=== PATIENT | female | born 1990 | race Caucasian/White ===

== ENCOUNTER 2018-08-21 12:11 | Emergency (ER) | payer BC, MEDICAID ==
[2018-08-21 12:35] VITALS: BP 126/72
--- NOTE | 2018-08-21 12:46 | UC ---
Throat Pain/Nasal Ciro HPI - HPI Summary HPI Summary: 28-year-old woman here in clinic today with a chief complaint of sore throat and runny nose. Been going on 1-2 days. She feels somewhat ill and fatigued. Rhinorrhea is yellow. No fevers. No chest congestion. She took an over-the- counter sinus preparation which did help with the symptoms. - History of Current Complaint Chief Complaint: UCRespiratory Stated Complaint: CONGESTION,COUGH,SORE THROAT,EARS Time Seen by Provider: 08/21/18 12:29 Hx Last Menstrual Period: unknown Pain Intensity: 0 - Allergies/Home Medications Allergies/Adverse Reactions: Allergies Allergy/AdvReac Type Severity Reaction Status Date / Time No Known Allergies Allergy Verified 08/21/18 12:30 Home Medications: Home Medications Escitalopram (NF) [Lexapro 20 mg (NF)] 20 mg PO DAILY 08/21/18 [History Confirmed 08/21/18] PMH/Surg Hx/FS Hx/Imm Hx Psychological History: Depression Other History Of: Negative For: HIV, Hepatitis B, Hepatitis C, Anticoagulant Therapy - Surgical History Surgical History: Yes Surgery Procedure, Year, and Place: tonsillectomy - Family History Known Family History: Positive: Hypertension, Diabetes - Social History Alcohol Use: Occasionally Substance Use Type: None Smoking Status (MU): Never Smoked Tobacco - Immunization History Most Recent Influenza Vaccination: has not had Review of Systems All Other Systems Reviewed And Are Negative: Yes Constitutional: Positive: Negative Skin: Positive: Negative Eyes: Positive: Negative ENT: Positive: Sore Throat, Nasal Discharge, Sinus Congestion Respiratory: Positive: Negative Cardiovascular: Positive: Negative Gastrointestinal: Positive: Negative Motor: Positive: Negative Neurovascular: Positive: Negative Musculoskeletal: Positive: Negative Neurological: Positive: Negative Psychological: Positive: Negative Is Patient Immunocompromised?: No Physical Exam Triage Information Reviewed: Yes Appearance: Well-Appearing, No Pain Distress, Well-Nourished Vital Signs: Initial Vital Signs Temp 97.9 F 08/21/18 12:31 Pulse 90 08/21/18 12:31 Resp 15 08/21/18 12:31 BP 126/72 08/21/18 12:31 Pulse Ox 97 08/21/18 12:31 Vital Signs Reviewed: Yes Eye Exam: Normal Eyes: Positive: Conjunctiva Clear ENT: Positive: Pharyngeal erythema, Nasal congestion, Nasal drainage, TMs normal Neck exam: Normal Neck: Positive: Supple Respiratory Exam: Normal Respiratory: Positive: Lungs clear, Normal breath sounds, No respiratory distress Cardiovascular Exam: Normal Cardiovascular: Positive: RRR Musculoskeletal Exam: Normal Musculoskeletal: Positive: Strength Intact, ROM Intact Neurological Exam: Normal Neurological: Positive: Alert, Muscle Tone Normal Psychological Exam: Normal Psychological: Positive: Age Appropriate Behavior Skin Exam: Normal Throat Pain/Nasal Course/Dx - Course Course Of Treatment: DISCUSSED VIRAL VERSES BACTERIAL INFECTIONS AND THE ROLE OF ANTIBIOTICS. THE PATIENT PREFERS TO BE ON ANTIBIOTICS AT THIS TIME. - Differential Dx/Diagnosis Provider Diagnoses: UPPER RESPIRATORY TRACT INFECTION Discharge - Sign-Out/Discharge Documenting (check all that apply): Patient Departure All imaging exams completed and their final reports reviewed: No Studies - Discharge Plan Condition: Stable Disposition: HOME Prescriptions: Amoxicillin PO (*) [Amoxicillin 875 MG (*)] 875 mg PO BID #20 tab Patient Education Materials: Upper Respiratory Infection (ED) Referrals: [facility] [Outside] Additional Instructions: FOLLOW UP WITH YOUR DOCTOR IF NOT COMPLETELY IMPROVED. GET RECHECKED FOR ANY WORSENING OF YOUR CONDITION OR QUESTIONS OR CONCERNS. - Billing Disposition and Condition Condition: STABLE Disposition: Home
== END 2018-08-21 12:50 | disposition home or self-care (01) ==
LOC: UCCORT 12:11
DX: J06.9 Acute upper respiratory infection, unspecified (principal); F32.9 Major depressive disorder, single episode, unspecified; Z79.899 Other long term (current) drug therapy
CPT/HCPCS: 99212; G0463

== ENCOUNTER 2019-01-12 13:52 | Emergency (ER) | payer MEDICAID, OTHER ==
[2019-01-12 15:50] VITALS: BP 112/79
--- NOTE | 2019-01-12 16:08 | UC ---
Throat Pain/Nasal Ciro HPI - HPI Summary HPI Summary: C/O bilateral maxillary sinus pain with worsening allergic sinus congestion in the past week. - History of Current Complaint Chief Complaint: UCRespiratory Stated Complaint: SINUSES/ST Hx Obtained From: Patient Hx Last Menstrual Period: 12/28/18 ?: No Onset/Duration: Gradual Onset, Lasting Weeks - 1, Worse Since - the last 3 days. Severity: Mild Pain Intensity: 1 Cough: None Associated Signs & Symptoms: Positive: Sinus Discomfort, Nasal Discharge. Negative: Wheezing Related History: Seasonal Allergies - Allergies/Home Medications Allergies/Adverse Reactions: Allergies Allergy/AdvReac Type Severity Reaction Status Date / Time No Known Allergies Allergy Verified 01/12/19 15:46 Home Medications: Home Medications Cetirizine* [ZyrTEC 10 MG TAB*] 10 mg PO DAILY 01/12/19 [History Confirmed 01/12] Fluticasone NASAL SPRAY 50MCG* [Flonase NASAL SPRAY 50MCG*] 1 spray BID [History Confirmed 01/12/19] PMH/Surg Hx/FS Hx/Imm Hx Previously Healthy: Yes Other History Of: Negative For: HIV, Hepatitis B, Hepatitis C, Anticoagulant Therapy - Surgical History Surgical History: Yes Surgery Procedure, Year, and Place: tonsillectomy - Family History Known Family History: Positive: Hypertension, Diabetes Negative: Cardiac Disease - Social History Occupation: Employed Full-time Lives: With Family Alcohol Use: Occasionally Substance Use Type: None Smoking Status (MU): Never Smoked Tobacco - Immunization History Most Recent Influenza Vaccination: has not had Review of Systems All Other Systems Reviewed And Are Negative: Yes ENT: Positive: Nasal Discharge, Sinus Congestion, Sinus Pain/Tenderness Is Patient Immunocompromised?: No Physical Exam Triage Information Reviewed: Yes Appearance: No Pain Distress, Well-Nourished, Ill-Appearing - mild Vital Signs: Initial Vital Signs Temp 97 F 01/12/19 15:48 Pulse 82 01/12/19 15:48 Resp 16 01/12/19 15:48 BP 112/79 01/12/19 15:48 Pulse Ox 98 01/12/19 15:48 Vital Signs Reviewed: Yes Eyes: Positive: Conjunctiva Clear ENT: Positive: Pharynx normal, Nasal congestion - with allergic changes, TMs normal Neck exam: Normal Respiratory Exam: Normal Cardiovascular Exam: Normal Musculoskeletal Exam: Normal Neurological Exam: Normal Psychological Exam: Normal Skin Exam: Normal Throat Pain/Nasal Course/Dx - Differential Dx/Diagnosis Differential Diagnosis/HQI/PQRI: Pharyngitis, Sinusitis, URI Provider Diagnosis: Allergic rhinitis, Acute sinusitis Discharge - Sign-Out/Discharge Documenting (check all that apply): Patient Departure All imaging exams completed and their final reports reviewed: No Studies - Discharge Plan Condition: Stable Disposition: HOME Prescriptions: Amoxicillin 875 mg PO BID #20 tablet Fluconazole 150 MG TAB* [Diflucan 150 MG TAB*] 150 mg PO ONCE #1 tablet Patient Education Materials: Allergic Rhinitis (ED), Sinusitis (ED), Amoxicillin (By mouth) Referrals: Augie Patton MD [Primary Care Provider] - Additional Instructions: NEILMED SINUS RINSE: CHECK OUT AT [facility] Saline nasal wash helps with mucous, allergies and congestion. It can be used up to twice a day or only as needed. Use lukewarm tap water. It does not have to be sterilized or distilled water. Do 1/3 on each side and snort out of both nostrils. Repeat the process with 1/6 of the bottle on each side with snorting in between to finish the solution in the bottle - Billing Disposition and Condition Condition: STABLE Disposition: Home
== END 2019-01-12 16:18 | disposition home or self-care (01) ==
LOC: UCCORT 13:52
DX: J30.9 Allergic rhinitis, unspecified (principal); J01.90 Acute sinusitis, unspecified
CPT/HCPCS: 99212; G0463

== ENCOUNTER 2019-03-10 16:56 | Emergency (ER) | payer OTHER ==
[2019-03-10 17:49] VITALS: BP 112/79
--- NOTE | 2019-03-10 18:13 | UC ---
Throat Pain/Nasal Ciro HPI - HPI Summary HPI Summary: 28-year-old woman comes in with a chief complaint of runny nose and sinus pressure for 4 days. She reports some green rhinorrhea. No cough or chest congestion. She does have some postnasal drip. Also has ear pressure. - History of Current Complaint Chief Complaint: UCRespiratory Stated Complaint: SINUS COMPLAINT Time Seen by Provider: 03/10/19 17:36 Hx Last Menstrual Period: 02/17 Pain Intensity: 7 - Allergies/Home Medications Allergies/Adverse Reactions: Allergies Allergy/AdvReac Type Severity Reaction Status Date / Time No Known Allergies Allergy Verified 03/10/19 17:40 Home Medications: Home Medications Cholecalciferol TAB* [Vitamin D TAB*] 1,000 unit PO DAILY 03/10/19 [History Confirmed 03/10/19] Ibuprofen TAB* [Advil TAB*] 200 mg PO DAILY PRN 03/10/19 [History Confirmed 07/19] Multivitamin [Multivitamins] 1 each PO QAM 03/10/19 [History Confirmed 03/10/19] PMH/Surg Hx/FS Hx/Imm Hx Previously Healthy: Yes Other History Of: Negative For: HIV, Hepatitis B, Hepatitis C, Anticoagulant Therapy - Surgical History Surgical History: Yes Surgery Procedure, Year, and Place: tonsillectomy - Family History Known Family History: Positive: Hypertension, Diabetes Negative: Cardiac Disease - Social History Alcohol Use: Occasionally Substance Use Type: Marijuana Substance Use Comment - Amount & Last Used: 03/08 Smoking Status (MU): Never Smoked Tobacco - Immunization History Most Recent Influenza Vaccination: has not had Review of Systems All Other Systems Reviewed And Are Negative: Yes Constitutional: Positive: Negative Skin: Positive: Negative Eyes: Positive: Negative ENT: Positive: Ear Ache, Nasal Discharge, Sinus Congestion, Sinus Pain/ Tenderness Respiratory: Positive: Negative Cardiovascular: Positive: Negative Gastrointestinal: Positive: Negative Motor: Positive: Negative Neurovascular: Positive: Negative Musculoskeletal: Positive: Negative Neurological: Positive: Negative Psychological: Positive: Negative Is Patient Immunocompromised?: No Physical Exam Triage Information Reviewed: Yes Appearance: Well-Appearing, No Pain Distress, Well-Nourished Vital Signs: Initial Vital Signs Temp 97.5 F 03/10/19 17:44 Pulse 88 03/10/19 17:44 Resp 20 03/10/19 17:44 BP 112/79 03/10/19 17:44 Pulse Ox 100 03/10/19 17:44 Vital Signs Reviewed: Yes Eye Exam: Normal Eyes: Positive: Conjunctiva Clear ENT: Positive: Pharyngeal erythema, Nasal congestion, Nasal drainage, TM dull - RT, Uvula midline Neck: Positive: Supple Respiratory: Positive: Lungs clear, Normal breath sounds, No respiratory distress Cardiovascular: Positive: RRR Musculoskeletal Exam: Normal Musculoskeletal: Positive: Strength Intact, ROM Intact Neurological: Positive: Alert, Muscle Tone Normal Psychological Exam: Normal Psychological: Positive: Age Appropriate Behavior Skin Exam: Normal Throat Pain/Nasal Course/Dx - Course Course Of Treatment: DISCUSSED VIRAL VERSES BACTERIAL INFECTION AND THE ROLE OF ANTIBIOTICS. THE PATIENT PREFERS TO BE ON ANTIBIOTICS AT THIS TIME. - Differential Dx/Diagnosis Provider Diagnosis: Sinusitis Discharge - Sign-Out/Discharge Documenting (check all that apply): Patient Departure All imaging exams completed and their final reports reviewed: No Studies - Discharge Plan Condition: Stable Disposition: HOME Prescriptions: Amoxicillin PO (*) [Amoxicillin 875 MG (*)] 875 mg PO BID #20 tab Fluconazole 150 MG TAB* [Diflucan 150 MG TAB*] 150 mg PO ONCE #2 tablet Patient Education Materials: Sinusitis (ED) Referrals: Augie Patton MD [Primary Care Provider] - Additional Instructions: FOLLOW UP WITH YOUR DOCTOR IF NOT COMPLETELY IMPROVED. GET RECHECKED SOONER IF YOUR CONDITION WORSENS OR ANY QUESTIONS OR CONCERNS. - Billing Disposition and Condition Condition: STABLE Disposition: Home
== END 2019-03-10 18:20 | disposition home or self-care (01) ==
LOC: UCCORT 16:56
DX: J32.9 Chronic sinusitis, unspecified (principal)
CPT/HCPCS: 99212; G0463

== ENCOUNTER 2019-05-15 20:20 | Emergency (ER) | payer OTHER ==
--- NOTE | 2019-05-15 20:31 | UC ---
UC General HPI - HPI Summary HPI Summary: 28-year-old female who ate dinner which consisted of chicken at the [employer] at 5 PM. Within about an hour and a half she started having diarrhea and has had 3 bouts of diarrhea since 6:30 PM. No nausea or vomiting. No fever or chills. She states this morning she did wake up and had a mild headache and felt that she may be coming down with something. No other people that ate the dinner are sick although one-person has had some mild nausea. - History of Current Complaint Stated Complaint: NAUSEA,DIARRHEA,WEAKNESS,CHILLS Time Seen by Provider: 05/15/19 20:27 Hx Obtained From: Patient Hx Last Menstrual Period: 02/17 Onset/Duration: Sudden Onset Timing: Intermittent Episodes Lasting: Onset Severity: Mild Current Severity: Mild Associated Signs & Symptoms: Positive: Diarrhea - 3 bouts of diarrhea since 6: 30 PM., Nausea - Allergy/Home Medications Allergies/Adverse Reactions: Allergies Allergy/AdvReac Type Severity Reaction Status Date / Time No Known Allergies Allergy Verified 05/15/19 20:34 PMH/Surg Hx/FS Hx/Imm Hx Previously Healthy: Yes Other History Of: Negative For: HIV, Hepatitis B, Hepatitis C, Anticoagulant Therapy - Surgical History Surgical History: Yes Surgery Procedure, Year, and Place: tonsillectomy - Family History Known Family History: Positive: Hypertension, Diabetes Negative: Cardiac Disease - Social History Alcohol Use: Occasionally Substance Use Type: Marijuana Substance Use Comment - Amount & Last Used: 03/08 Smoking Status (MU): Never Smoked Tobacco - Immunization History Most Recent Influenza Vaccination: has not had Review of Systems All Other Systems Reviewed And Are Negative: Yes Gastrointestinal: Positive: Diarrhea, Nausea Neurological: Positive: Headache - Patient does not have a headache now however she states this morning she awakened with a mild headache and felt she was coming down with something. Is Patient Immunocompromised?: No Physical Exam Triage Information Reviewed: Yes Appearance: Well-Appearing, No Pain Distress, Well-Nourished Vital Signs Reviewed: Yes Eyes: Positive: Conjunctiva Clear ENT: Positive: Hearing grossly normal, Pharynx normal, TMs normal, Uvula midline Neck: Positive: Supple, Nontender, No Lymphadenopathy Respiratory: Positive: Lungs clear, Normal breath sounds, No respiratory distress, No accessory muscle use Cardiovascular: Positive: RRR, No Murmur, Pulses Normal, Brisk Capillary Refill Abdomen Description: Positive: Nontender, No Organomegaly, Soft. Negative: CVA Tenderness (R), CVA Tenderness (L), Distended, Guarding Bowel Sounds: Positive: Present Musculoskeletal: Positive: Strength Intact, ROM Intact Neurological: Positive: Alert, Muscle Tone Normal Psychological Exam: Normal Skin Exam: Normal Course/Dx - Course Course Of Treatment: Patient is comfortable here and does not appear ill. I gave her no work until Sunday. She can go home and increase fluids. She is to go to the emergency room if she develops vomiting or diarrhea or feeling like she is going to pass out. Patient is agreeable with this plan of action. - Diagnoses Provider Diagnosis: Diarrhea Discharge - Sign-Out/Discharge Documenting (check all that apply): Patient Departure All imaging exams completed and their final reports reviewed: No Studies - Discharge Plan Condition: Good Disposition: HOME Patient Education Materials: Acute Diarrhea (ED) Forms: *Work Release Referrals: Augie Patton MD [Primary Care Provider] - Additional Instructions: Increase fluids, rest, follow-up with your primary care provider if no improvement in 3 or 4 days. If you develop fever, chills, vomiting and diarrhea and feeling you're going to pass out and go to the emergency room. - Billing Disposition and Condition Condition: GOOD Disposition: Home
[2019-05-15 20:33] VITALS: BP 107/82
--- OUTSIDE RECORDS SUMMARY | 2019-05-16 01:08 | XMS REPORT | Continuity of Care Document ---
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 [place] [id number] Family History Date Family Member(s) Observation Comments Mother Hypertension Mother Mental Illness First Brother Allergies First Brother Asthma Grandfather Diabetes Grandmother Stroke Aunt Alcoholism Aunt Cancer Social History Type Date Description Comments Sex Unknown ETOH Use Occasionally consumes alcohol Tobacco Use Start: Unknown Patient has never smoked Recreational Drug Use Never Used Drugs Smoking Status Reviewed: 01/30/18 Patient has never smoked Seat Belt/Car Seat Always uses seat belt Allergies, Adverse Reactions, Alerts Active Allergies Reaction Severity Comments Date Wellbutrin Urticaria 02/27/2018 Inactive Allergies NKDA 11/28/2016 Medications Active Medications SIG Qnty Indications Ordering Provider Date Vistaril 1-2 pills three 30caps Monroe Rucker MD 02/22/2018 25mg Capsules times a day as needed for itching Lexapro 1 by mouth every 90tabs Augie 01/02/2018 20mg Tablets day MD Abdi History Medications Wellbutrin XL 1 tab by mouth 30tabs Augie 01/30/2018 - 150mg every morning MD Abdi 02/27/2018 Tablets ER 24HR Fluticasone 1-2 sprays in 16gm J30.9 Sukhdeep Roya DO 07/25/2017 - Propionate each nostril 10/10/2017 50mcg/Act once daily Suspension Lexapro 1 by mouth every 30tabs Augie 05/08/2017 - 10mg Tablets massimo Patton MD 01/02/2018 Nexplanon Unknown - 68mg 10/31/2018 Implant Immunizations CPT Code Status Date Vaccine Lot # [id number] Given 08/27/2017 Adacel (TdaP) [id number] 97858 Given 01/11/2009 Gardasil/HPV (Records Only) 52359 Given 07/13/2008 Gardasil/HPV (Records Only) 91639 Given 10/29/2007 DTP Or Tripedia 03086 Given 10/29/2007 Gardasil/HPV (Records Only) 82286 Given 05/21/2006 Meningococcal Conjugate Vaccine 25503 Given 05/08/2003 DTP Or Tripedia 40930 Given 08/10/1995 Opv 09442 Given 08/10/1995 DTP Or Tripedia 88127 Given 08/11/1994 MMR 56225 Given 01/12/1994 Hep B Vac, (0-19) (3 Dose) 78350 Given 08/26/1993 Hep B Vac, (0-19) (3 Dose) 76041 Given 07/14/1993 Hep B Vac, (0-19) (3 Dose) 05136 Given 01/17/1992 DTP Or Tripedia 74779 Given 01/07/1992 Opv 50224 Given 10/02/1991 MMR 35775 Given 01/25/1991 DTP Or Tripedia 42291 Given 1990 Opv 69601 Given 1990 DTP Or Tripedia 62571 Given 1990 Opv 77195 Given 1990 DTP Or Tripedia 97371 Refused 01/16/2018 Flu/Fluzone Iiv4 3Yrs And Older Vital Signs Date Vital Result Comment 04/16/2019 3:56pm Weight 172.00 lb Height 62.5 inches 5'2.50" BP Systolic 110 mmHg BP Diastolic 78 mmHg Heart Rate 76 /min BMI (Body Mass Index) 31.0 kg/m2 10/31/2018 4:14pm Weight 174.12 lb Height 62.5 inches 5'2.50" BP Systolic 118 mmHg BP Diastolic 70 mmHg Heart Rate 90 /min BMI (Body Mass Index) 31.3 kg/m2 10/09/2018 10:20am Weight 176.00 lb Height 62.5 inches 5'2.50" BP Systolic 122 mmHg BP Diastolic 72 mmHg Heart Rate 84 /min BMI (Body Mass Index) 31.7 kg/m2 Z68.31 A, 31.0-31.9 02/27/2018 7:03pm Weight 175.00 lb Height 62.5 inches 5'2.50" BP Systolic 94 mmHg BP Diastolic 64 mmHg Heart Rate 88 /min BMI (Body Mass Index) 31.5 kg/m2 02/22/2018 2:34pm Weight 174.00 lb Height 62.5 inches 5'2.50" BP Systolic 116 mmHg BP Diastolic 64 mmHg Body Temperature 98.1 F Heart Rate 68 /min BMI (Body Mass Index) 31.3 kg/m2 01/30/2018 7:43pm Weight 176.25 lb Height 62.5 inches 5'2.50" BP Systolic 122 mmHg BP Diastolic 80 mmHg Heart Rate 76 /min BMI (Body Mass Index) 31.7 kg/m2 01/16/2018 5:15pm Weight 171.00 lb Height 62.5 inches 5'2.50" BP Systolic 112 mmHg BP Diastolic 74 mmHg Heart Rate 72 /min BMI (Body Mass Index) 30.8 kg/m2 Z68.30 A, 30.0-30.9 01/02/2018 8:20pm Weight 175.00 lb Height 62.5 inches 5'2.50" BP Systolic 116 mmHg BP Diastolic 80 mmHg Heart Rate 76 /min BMI (Body Mass Index) 31.5 kg/m2 11/12/2017 4:28pm Weight 175.00 lb Height 62.5 inches 5'2.50" BP Systolic 110 mmHg BP Diastolic 72 mmHg Body Temperature 98.0 F Heart Rate 72 /min BMI (Body Mass Index) 31.5 kg/m2 10/29/2017 4:25pm Weight 173.00 lb Height 62.5 inches 5'2.50" BP Systolic 112 mmHg BP Diastolic 70 mmHg Heart Rate 60 /min BMI (Body Mass Index) 31.1 kg/m2 Z68.31 A, 31.0-31.9 10/10/2017 4:12pm Weight 175.00 lb Height 62.50 inches 5'2.50" BP Systolic 126 mmHg BP Diastolic 80 mmHg Heart Rate 72 /min BMI (Body Mass Index) 31.5 kg/m2 10/10/2017 4:09pm Weight 170.00 lb Height 62.5 inches 5'2.50" BMI (Body Mass Index) 30.6 kg/m2 08/27/2017 4:03pm Weight 170.00 lb Height 62.5 inches 5'2.50" BP Systolic 122 mmHg BP Diastolic 72 mmHg Heart Rate 72 /min BMI (Body Mass Index) 30.6 kg/m2 Z68.30 A, 30.0-30.9 07/25/2017 3:58pm Weight 168.00 lb Height 62.5 inches 5'2.50" BP Systolic 120 mmHg BP Diastolic 76 mmHg Body Temperature 98.9 F Heart Rate 72 /min BMI (Body Mass Index) 30.2 kg/m2 Z68.30 A, 30.0-30.9 05/29/2017 10:24am Weight 159.00 lb Height 62.5 inches 5'2.50" BP Systolic 112 mmHg BP Diastolic 62 mmHg Heart Rate 88 /min BMI (Body Mass Index) 28.6 kg/m2 Z68.28 A, 28.0-28.9 05/08/2017 12:20pm Weight 157.00 lb Height 62.5 inches 5'2.50" BP Systolic 118 mmHg BP Diastolic 70 mmHg Heart Rate 82 /min BMI (Body Mass Index) 28.3 kg/m2 Z68.28 A, 28.0-28.9 11/28/2016 10:58am Weight 151.00 lb Height 62.5 inches 5'2.50" BP Systolic 106 mmHg BP Diastolic 64 mmHg Heart Rate 72 /min BMI (Body Mass Index) 27.2 kg/m2 Z68.27 A, 27.0-27.9 Results Test Date Facility Test Result H/L Range Note Lipid Profile 12/01/2016 [facility] Cholesterol 166 mg/dL <=200 [address] [place] [address] [phone] Triglycerides 46 mg/dL 0-150 HDL Cholesterol 69 mg/dL High 40-60 LDL (Calculated) 88 CALC 0-129 VLDL Cholesterol 9 CALC HDL Risk Factor 2.4 CALC 1 Urinalysis 12/01/2016 [facility] Color YELLOW Yellow [address] [place] [address] [phone] Appearance CLEAR Clear Specific [place] 1.005 PH 7.0 Glucose, Urine NORMAL Normal Bilirubin NEGATIVE Negative Ketone NEGATIVE Negative Blood TRACE Abnormal Negative Protein NEGATIVE Negative Nitrite NEGATIVE Negative Leukocytes NEGATIVE Negative Urinalysis Comment 1 Microscopic no <SEE NOTE> 2 Urobilinogen NORMAL Normal CBC W/Auto Diff 12/01/2016 [facility] WBC 7.8 K/uL 4.5- 11.0 [address] [place] [address] [phone] RBC 4.85 m/uL 4.20-5.40 HGB 14.4 g/dL 12.0-16.0 HCT 43.2 % 38.0-47.0 MCV 89.1 fL 82.0-98.0 MCH 29.7 pg 27.0-31.0 MCHC 33.3 g/dL 32.0-36.0 RDW 13.4 % 11.5-14.5 PLT 323 K/uL 130-400 MPV 7.5 fL 7.4-10.4 Gran # 5.2 K/uL 1.3-7.4 Lymph # 2.1 K/uL 1.2-3.4 Mid # 0.5 K/uL 0.1-2.0 Gran % 66.1 % 30.0-70.0 Mid % 6.6 % 1.0-11.0 Lymph % 27.3 % 20.0-40.0 Comprehensive 12/01/2016 [facility] Sodium 142 mmol/L 136 -145 Metabolic Panel [address] [place] [address] [phone] Potassium 4.0 mmol/L 3.5-5.1 Chloride 110 mmol/L High 98-107 Carbon Dioxide 24 mmol/L 23-32 Anion Gap 12.0 10.0-20.0 Glucose 92 mg/dL 70-105 BUN 11 mg/dL 7-19 Creatinine 0.8 mg/dL 0.6-1.1 BUN/Creat Ratio 13.8 CALC 7.0-25.0 Calcium 9.3 mg/dL 8.4-10.2 Total Protein 6.7 g/dL 6.4-8.3 Albumin 4.3 g/dL 3.5-5.0 Globulin 2.4 g/dL A/G Ratio 1.8 CALC Alk. Phosphatase 62 U/L 40-150 Alt (SGPT) 19 U/L 0-55 Ast (Sgot) 16 U/L 5-34 Total Bilirubin 0.50 mg/dL 0.20-1.20 GFR Non- >60 ml/min/1.73m^ >=60 3 GFR >60 ml/min/1.73m^ >=60 4 TSH 12/01/2016 [facility] TSH 2.80 uIU/mL 0.44-4.71 [address] [place] [address] [phone] 1 - CHD RISK FACTOR VS CHOLESTEROL/HDL RATIO RELATIVE TOTAL CHOL/HDL RATIO RISK FOR CHD MALE FEMALE 0.[address] CHD 3.4 3.3 AVERAGE 4.9 4.4 2 X AVERAGE 9.6 7.0 3 X AVERAGE 24.0 11.0 2 Microscopic not indicated. 3 - The above GFR is for a Non- patient 4 - The above GFR is for an patient Procedures Date Code Description Status 10/09/2018 01818 Removal, Non-Biodegradable Drug Delivery Implant Completed Encounters Type Date Location Provider Dx Diagnosis Office Visit 04/16/2019 [facility] Augie F32.9 Major depressive 4:00p [facility] Trever Patton MD disorder, single episode, unspecified M79.672 Pain in left foot Z68.31 Body mass index (BMI) 31.0-31.9, adult Office Visit 10/31/2018 4:00p [facility] Augie F32.9 Major depressive Physicians Trever Patton MD disorder, single episode, unspecified R10.9 Unspecified abdominal pain Z68.31 Body mass index (BMI) 31.0-31.9, adult Office Visit 10/09/2018 [facility] Sarah Z30.46 Enctr srvlnc 10:15a [facility]icians Danilo Ortega. implantable Trever subdermal contraceptive Z68.31 Body mass index (BMI) 31.0-31.9, adult Office [facility]2018 [facility] Trever Patton MD urticaria Z68.31 Body mass index (BMI) 31.0-31.9, adult Office Visit 02/22/2018 2:00p [facility] Monroe Camacho, L50.0 Allergic urticaria RPA-C F32.9 Major depressive disorder, single episode, unspecified Z68.31 Body mass index (BMI) 31.0-31.9, adult Office [facility] Trever Patton MD general adult medical exam w abnormal findings F32.9 Major depressive disorder, single episode, unspecified Z68.31 Body mass index (BMI) 31.0-31.9, adult Office Visit 01/16/2018 5:15p [facility] Augie F43.23 Adjustment [facility]icians Trever Patton MD disorder with mixed anxiety and depressed mood Z68.30 Body mass index (BMI) 30.0-30.9, adult Office Visit 01/02/2018 8:15p [facility] Augie F43.23 Adjustment [facility] Trever Patton MD disorder with mixed anxiety and depressed mood Z68.31 Body mass index (BMI) 31.0-31.9, adult Office Visit 11/12/2017 3:40p [facility] Ellen Shearer J02.9 Acute pharyngitis, INK GRINDER unspecified Z68.31 Body mass index (BMI) 31.0-31.9, adult Office Visit 10/29[facility]2017 [facility] H[facility].01 Otalgia, right 4:15p Physicians MD Abdi ear L.L.P. Office Visit 10/10/2017 [facility] Ruth Ann royal H68.003 Unspecified 4:00p Ingen, INK GRINDER-C Eustachian salpingitis, bilateral Z68.31 Body mass index (BMI) 31.0-31.9, adult Office Visit 08/27/2017 4:00p [facility] Augie F43.21 Adjustment [facility] Trever Patton MD disorder with depressed mood Z68.30 Body mass index (BMI) 30.0-30.9, adult Z23 Encounter for immunization Office Visit 07/25/2017 3:10p [facility] ANITA Conn J06.9 Acute upper respiratory infection, unspecified J30.9 Allergic rhinitis, unspecified Z68.30 Body mass index (BMI) 30.0-30.9, adult Office Visit 05/29/2017 10:45a [facility] Augie F43.21 Adjustment [facility] Trever Patton MD disorder with depressed mood Z68.28 Body mass index (BMI) 28.0-28.9, adult Office Visit 05/08/2017 12:30p [facility] Augie F43.21 Adjustment [facility] Trever Patton MD disorder with depressed mood Z68.28 Body mass index (BMI) 28.0-28.9, adult Office Visit 11/28/2016 10:30a [facility] Z00.00 Encntr for Physicians Trever Patton MD general adult medical exam w/o abnormal findings Z68.27 Body mass index (BMI) 27.0-27.9, adult M65.4 Radial styloid tenosynovitis [de Quervain] Plan of Treatment Future Appointment(s):05/21/2019 3:30 pm - Augie Patton MD at [facility]04/16/2019 - Augie Patton MDF32.9 Major depressive disorder, single episode, unspecifiedFollow up:as juazkwU43.672 Pain in left footComments:heal lift. better shoes. limit walking barefoot on hard surfacesFollow up:.Z68.31 Body mass index (BMI) 31.0-31.9, adult
--- OUTSIDE RECORDS SUMMARY | 2019-05-16 01:08 | XMS REPORT | Continuity of Care Document ---
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 Tobacco Use Start: Unknown Patient is a former one time smoker of End: Unknown smoker hooka Recreational Drug Use Sporadically uses Marijuana Recreational Drug Use Teaching provided regarding Naloxone/Narcan Training Available At [facility] Tattoo/Piercing Tattoo all ok Tattoo/Piercing Tattoos professionally done Sun Exposure Uses sunscreen Allergies, Adverse Reactions, Alerts Active Allergies Reaction Severity Comments Date NKDA 08/12/2015 Bee Sting 08/09/2015 Seasonal 08/09/2015 Medications Active Medications SIG Qnty Indications Ordering Provider Date Fluconazole one tab orally x 1tabs Z20.2 Maye Moy NP 05/13/2019 150mg Tablets one dose Lisinopril Unknown Medications Administered in Office Medication SIG Qnty Indications Ordering Provider Date Zithromax two tabs by 2tabs Z20.2 Maye Moy NP 05/13/2019 500mg Tablets mouth x 1 J-Azithromycin, 500MG, Maye Moy NP 05/13/2019 Qnty 2 Injection Nexplanon Device Maye Moy NP 03/31/2016 Injection Contraceptive Pills Maye Moy NP 12/23/2015 Control Injection Contraceptive Pills [facility] 02/11/2015 Control Injection Contraceptive Pills [facility] 11/20/2014 Control Injection Immunizations Description No Information Available Vital Signs Date Vital Result Comment 05/13/2019 12:30pm BP Systolic 112 mmHg BP Diastolic 70 mmHg Height 64 inches 5'4" Weight 174.00 lb BMI (Body Mass Index) 29.9 kg/m2 10/30/2016 10:24am BP Systolic 110 mmHg BP Diastolic 72 mmHg Height 64 inches 5'4" Results Test Date Facility Test Result H/L Range Note Laboratory test finding 05/13/2019 [facility] HIV Rapid... non reactive Hep C Rapid Test non reactive Test Urine..... negative Procedures Description No Information Available Medical Devices Description No Information Available Encounters Type Date Location Provider Dx Diagnosis Office Visit 05/13/2019 12:00p MAURA Moy NP Z20.2 Contact w and exposure to infect w a sexl mode of transmiss Z30.09 Encounter for oth general coun and advice on contraception Z11.4 Encounter for screening for human immunodeficiency virus Z11.59 Encounter for screening for other viral diseases Z32.02 Encounter for test, result negative Assessments Date Code Description Provider 05/13/2019 Z20.2 Contact with and (suspected) exposure to Maye Moy NP infections with a predominantly sexual mode of transmission 05/13/2019 Z30.09 Encounter for other general counseling and Maye Moy NP advice on contraception 05/13/2019 Z11.4 Encounter for screening for human Maye Moy NP immunodeficiency virus [HIV] 05/13/2019 Z11.59 Encounter for screening for other viral diseases Maye Moy NP 05/13/2019 Z32.02 Encounter for test, result negative Maye Moy NP Plan of Treatment 05/13/2019 - Maye Moy NPZ20.2 Contact with and (suspected) exposure to infections with a predominantly sexual mode of transmissionNew Medication: Zithromax 500 mg - two tabs by mouth x 1Fluconazole 150 mg - one tab orally x one doseNew Labs:Chlamydia/N Gonorroeae Rna Tma Urogenit, Ordered: Comments:Patient is contact to Chlamydia. Urine GCCT obtained today. Patient declines other testing. Treated today with Zmax 1 gm po. Reviewed use of, side effects and precautions of medication with patient whostates understanding. Instructed patient to abstain from ic x 1 week. Encouraged patient on consistent condom use. Rx fluconazole for prn use as patient reports that she always gets a yeast infection after taking abx.Follow up:prnZ30.09 Encounter for other general counseling and advice on contraceptionComments:Discussion regarding contraception choices. Patient is not interested in starting any bc today. She plans abstinence or consistent condom use. Patient is aware of Plan B. Patient was advised that her last PAP was 2014 and she is overdue. She states that she plans to have PAP done at her annual which is scheduled with her CREDIT DIRECTOR in [place].Z11.4 Encounter for screening for human immunodeficiency virus [HIV]Z11.59 Encounter for screening for other viral mtavicykL03.02 Encounter for test, result negativeComments:Advised patient that she could still have an early that is not detectable yet. Advised herto repeat a UPT in 2 weeks. Patient states understanding. Functional Status Description No Information Available Mental Status Description No Information Available Referrals Description No Information Available
== END 2019-05-15 20:48 | disposition home or self-care (01) ==
LOC: UCCORT 20:20
DX: R19.7 Diarrhea, unspecified (principal)
CPT/HCPCS: 99211; G0463

== ENCOUNTER 2019-06-22 18:54 | Emergency (ER) | payer OTHER ==
--- OUTSIDE RECORDS SUMMARY | 2019-06-22 19:32 | XMS REPORT | Continuity of Care Document ---
:1990 External Reference #:[id number] Author Name Augie Patton MD Address [address] [place] [address] Problems Active Problems Provider Date Major depressive disorder, single episode, Augie Patton MD Onset: unspecified Social History Type Date Description Comments Sex [...] Medications SIG Qnty Indications Ordering Provider Date Wellbutrin XL 1 tab by mouth 30tabs Augie 05/21/2019 150mg every morning MD Adbi Tablets ER 24HR Vistaril 1-2 pills three 30caps Augie 02/22/2018 25mg Capsules times a day as MD Abdi needed for itching Lexapro 1 by mouth every 90tabs Augie 01/02/2018 20mg Tablets day MD Abdi Immunizations CPT Code Status Date Vaccine Lot # [id number] Given 08/27/2017 Adacel (TdaP) [id number] 31009 Given 01/11/2009 Gardasil/HPV (Records Only) 43314 Given 07/13/2008 Gardasil/HPV (Records Only) 63538 Given 10/29/2007 DTP Or Tripedia 43754 Given 10/29/2007 Gardasil/HPV (Records Only) 59907 Given 05/21/2006 Meningococcal Conjugate Vaccine 48466 Given 05/08/2003 DTP Or Tripedia 08863 Given 08/10/1995 Opv 12313 Given 08/10/1995 DTP Or Tripedia 66790 Given 08/11/1994 MMR 68670 Given 01/12/1994 Hep B Vac, (0-19) (3 Dose) 20054 Given 08/26/1993 Hep B Vac, (0-19) (3 Dose) 07014 Given 07/14/1993 Hep B Vac, (0-19) (3 Dose) 66735 Given 01/17/1992 DTP Or Tripedia 20471 Given 01/07/1992 Opv 75521 Given 10/02/1991 MMR 98897 Given 01/25/1991 DTP Or Tripedia 78107 Given 1990 Opv 37093 Given 1990 DTP Or Tripedia 93263 Given 1990 Opv 57313 Given 1990 DTP Or Tripedia 12399 Refused 01/16/2018 Flu/Fluzone Iiv4 3Yrs And Older Vital Signs Date Vital Result Comment 05/21/2019 3:42pm Weight 173.50 lb Height 62.5 inches 5'2.50" BP Systolic 112 mmHg BP Diastolic 68 mmHg Heart Rate 72 /min BMI (Body Mass Index) 31.2 kg/m2 04/16/2019 3:56pm Weight 172.00 lb Height 62.5 inches 5'2.50" BP Systolic 110 mmHg BP Diastolic 78 mmHg Heart Rate 76 /min BMI (Body Mass Index) 31.0 kg/m2 Results Description No Information Available Procedures Description No Information Available Medical Devices Description No Information Available Encounters Type Date Location Provider Dx Diagnosis Office Visit 04/16/2019 [facility] Augie F32.9 Major depressive 4:00p Physicians Trever Patton MD disorder, single episode, unspecified M79.672 Pain in left foot Z68.31 Body mass index (BMI) 31.0-31.9, adult Assessments Date Code Description Provider 05/21/2019 Z00.01 Encounter for general adult medical Augie Patton MD examination with abnormal findings 05/21/2019 F32.9 Major depressive disorder, single episode, Augie Patton MD unspecified 05/21/2019 Z68.31 Body mass index (BMI) 31.0-31.9, adult Augie Gasparis , MD 04/16/2019 F32.9 Major depressive disorder, single episode, Augie Patton MD unspecified 04/16/2019 M79.672 Pain in left foot Augie Patton MD 04/16/2019 Z68.31 Body mass index (BMI) 31.0-31.9, adult Augie Patton MD Plan of Treatment No Information Available Functional Status Description No Information Available Mental Status Description No Information Available Referrals Description No Information Available
--- OUTSIDE RECORDS SUMMARY | 2019-06-22 19:32 | XMS REPORT | Continuity of Care Document ---
:1990 External Reference #:[id number] Author Name Augie Patton MD Address [address] [place] [address] Problems Active Problems Provider Date Major depressive disorder, single episode, Augie Patton MD Onset: unspecified Social History Type Date Description Comments Sex Unknown ETOH Use Occasionally consumes alcohol Tobacco Use Start: Unknown Patient has never smoked Recreational Drug Use Never Used Drugs Smoking Status Reviewed: 05/21/19 Patient has never smoked Seat Belt/Car Seat Always uses seat belt Allergies, Adverse Reactions, Alerts Active Allergies Reaction Severity Comments Date NKDA 06/18/2019 Inactive Allergies NKDA 11/28/2016 Wellbutrin Urticaria 02/27/2018 Medications Active Medications SIG Qnty Indications Ordering Provider Date Wellbutrin XL 1 tab by mouth 30tabs Augie 05/21/2019 150mg every morning MD Abdi Tablets ER 24HR Vistaril 1-2 pills three 30caps Augie 02/22/2018 25mg Capsules times a day as MD Abdi needed for itching Lexapro 1 by mouth every 90tabs Augie 01/02/2018 20mg Tablets day MD Abdi Immunizations CPT Code Status Date Vaccine Lot # [id number] Given 08/27/2017 Adacel (TdaP) [id number] 62962 Given 01/11/2009 Gardasil/HPV (Records Only) 86875 Given 07/13/2008 Gardasil/HPV (Records Only) 85634 Given 10/29/2007 DTP Or Tripedia 55479 Given 10/29/2007 Gardasil/HPV (Records Only) 21916 Given 05/21/2006 Meningococcal Conjugate Vaccine 36977 Given 05/08/2003 DTP Or Tripedia 60950 Given 08/10/1995 DTP Or Tripedia 05278 Given 08/10/1995 Opv 15034 Given 08/11/1994 MMR 05864 Given 01/12/1994 Hep B Vac, (0-19) (3 Dose) 99897 Given 08/26/1993 Hep B Vac, (0-19) (3 Dose) 69672 Given 07/14/1993 Hep B Vac, (0-19) (3 Dose) 72791 Given 01/17/1992 DTP Or Tripedia 18011 Given 01/07/1992 Opv 28765 Given 10/02/1991 MMR 96572 Given 01/25/1991 DTP Or Tripedia 16160 Given 1990 Opv 88501 Given 1990 DTP Or Tripedia 66155 Given 1990 Opv 29863 Given 1990 DTP Or Tripedia 22462 Refused 06/18/2019 Flu/Sanofi/Fluzone Iiv4 3Yrs And Older 32789 Refused 01/16/2018 Flu/Sanofi/Fluzone Iiv4 3Yrs And Older Vital Signs Date Vital Result Comment 06/18/2019 4:14pm Weight 175.25 lb Height 62.5 inches 5'2.50" BP Systolic 122 mmHg BP Diastolic 78 mmHg Heart Rate 80 /min BMI (Body Mass Index) 31.5 kg/m2 06/10/2019 4:22pm Weight 175.00 lb Height 62.5 inches 5'2.50" BP Systolic 92 mmHg BP Diastolic 72 mmHg Heart Rate 80 /min BMI (Body Mass Index) 31.5 kg/m2 Results Description No Information Available Procedures Date Code Description Status 06/10/2019 90277 Exc. Benign Lesions < 1/2 CM Completed Medical Devices Description No Information Available Encounters Type Date Location Provider Dx Diagnosis Office Visit 06/18/2019 [facility] Z48.02 Encounter for 4:00p Physicians Trever Patton MD removal of sutures Z68.31 Body mass index (BMI) 31.0-31.9, adult Office Visit 06/10/2019 4:30p [facility] D48.5 Neoplasm of Physicians Trever Patton MD uncertain behavior of skin Z68.31 Body mass index (BMI) 31.0-31.9, adult Office Visit 05/21/2019 3:30p [facility] Augie Z00.01 Encounter for Physicians Trever Patton MD general adult medical exam w abnormal findings F32.9 Major depressive disorder, single episode, unspecified Z68.31 Body mass index (BMI) 31.0-31.9, adult Office Visit 04/16/2019 4:00p [facility] Augie F32.9 Major depressive Physicians Trever Patton MD disorder, single episode, unspecified M79.672 Pain in left foot Z68.31 Body mass index (BMI) 31.0-31.9, adult Assessments Date Code Description Provider 06/18/2019 Z48.02 Encounter for removal of sutures Augie Patton MD 06/18/2019 Z68.31 Body mass index (BMI) 31.0-31.9, adult Augie Patton MD 06/10/2019 D48.5 Neoplasm of uncertain behavior of skin Augie Patton MD 06/10/2019 Z68.31 Body mass index (BMI) 31.0-31.9, adult Augie Patton MD 05/21/2019 Z00.01 Encounter for general adult medical Augie Patton MD examination with abnormal findings 05/21/2019 F32.9 Major depressive disorder, single episode, Augie Patton MD unspecified 05/21/2019 Z68.31 Body mass index (BMI) 31.0-31.9, adult Augie Patton MD 04/16/2019 F32.9 Major depressive disorder, single episode, Augie Patton MD unspecified 04/16/2019 M79.672 Pain in left foot Augie Patton MD 04/16/2019 Z68.31 Body mass index (BMI) 31.0-31.9, adult Augie Patton MD Plan of Treatment 06/18/2019 - Augie Patton MDZ48.02 Encounter for removal of suturesComments:path shows mod dysplastic melanotic nevus. completely excisedFollow up:as plgjcpP70.31 Body mass index (BMI) 31.0-31.9, adult Functional Status Description No Information Available Mental Status Description No Information Available Referrals Description No Information Available
--- OUTSIDE RECORDS SUMMARY | 2019-06-22 19:32 | XMS REPORT | Continuity of Care Document ---
:1990 External Reference #:[id number] Author Name Augie Patton MD Address [address] [place] [address] Problems Active Problems Provider Date Major depressive [...] CPT Code Status Date Vaccine Lot # [id number] Given 08/27/2017 Adacel (TdaP) [id number] 85909 Given 01/11/2009 Gardasil/HPV (Records Only) 07292 Given 07/13/2008 Gardasil/HPV (Records Only) 69507 Given 10/29/2007 DTP Or Tripedia 27362 Given 10/29/2007 Gardasil/HPV (Records Only) 41317 Given 05/21/2006 Meningococcal Conjugate Vaccine 68851 Given 05/08/2003 DTP Or Tripedia 42047 Given 08/10/1995 Opv 53955 Given 08/10/1995 DTP Or Tripedia 63018 Given 08/11/1994 MMR 26369 Given 01/12/1994 Hep B Vac, (0-19) (3 Dose) 11001 Given 08/26/1993 Hep B Vac, (0-19) (3 Dose) 31328 Given 07/14/1993 Hep B Vac, (0-19) (3 Dose) 70787 Given 01/17/1992 DTP Or Tripedia 25527 Given 01/07/1992 Opv 88942 Given 10/02/1991 MMR 31978 Given 01/25/1991 DTP Or Tripedia 57806 Given 1990 Opv 78690 Given 1990 DTP Or Tripedia 62882 Given 1990 Opv 22861 Given 1990 DTP Or Tripedia 17980 Refused 01/16/2018 Flu/Sanofi/Fluzone Iiv4 3Yrs And Older Vital Signs Date Vital Result Comment 06/10/2019 4:22pm Weight 175.00 lb Height 62.5 inches 5'2.50" BP Systolic 92 mmHg BP Diastolic 72 mmHg Heart Rate 80 /min BMI (Body Mass Index) 31.5 kg/m2 05/21/2019 3:42pm Weight 173.50 lb Height 62.5 inches 5'2.50" BP Systolic 112 mmHg BP Diastolic 68 mmHg Heart Rate 72 /min BMI (Body Mass Index) 31.2 kg/m2 Results Description No Information Available Procedures Date Code Description Status 06/10/2019 93966 Exc. Benign Lesions < 1/2 CM Completed Medical Devices Description No Information Available Encounters Type Date Location Provider Dx Diagnosis Office Visit 06/10/2019 [facility] D48.5 Neoplasm of 4:30p Physicians Trever Patton MD uncertain behavior of skin Z68.31 Body mass index (BMI) 31.0-31.9, adult Office Visit 05/21/2019 3:30p [facility] Z00.01 Encounter for Physicians Trever Patton MD general adult medical exam w abnormal findings F32.9 Major depressive disorder, single episode, unspecified Z68.31 Body mass index (BMI) 31.0-31.9, adult Office Visit 04/16/2019 4:00p [facility] Augie F32.9 Major depressive Physicians Trever Patton MD disorder, single episode, unspecified M79.672 Pain in left foot Z68.31 Body mass index (BMI) 31.0-31.9, adult Assessments Date Code Description Provider 06/10/2019 D48.5 Neoplasm of uncertain behavior of [...] adult Augie Patton MD Plan of Treatment Future Appointment(s):06/18/2019 4:00 pm - Augie Patton MD at [facility] Physicians Trever Functional Status Description No Information Available Mental Status Description No Information Available Referrals Description No Information Available
--- OUTSIDE RECORDS SUMMARY | 2019-06-22 19:32 | XMS REPORT | Continuity of Care Document ---
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 Recreational Drug Use Denies Drug Use Allergies, Adverse Reactions, Alerts Active Allergies Reaction Severity Comments Date Wellbutrin hives 04/22/2019 Ciprodex 06/05/2019 Inactive Allergies NKDA 12/18/2018 Medications Active Medications SIG Qnty Indications Ordering Provider Date Fluticasone 2 sprays each 29.7ml Reggie Su, 06/03/2019 Propionate nostril every day M.D. 50mcg/Act Suspension Wellbutrin SR 1 by mouth twice Unknown 150mg a day Tablets ER 12HR History Medications Prednisone 1 by mouth every 3tabs Reggie Su, 06/05/2019 - 10mg morning M.D. 06/17/2019 Tablets Nasonex 2 squirts each 51gm Reggie Su, 06/03/2019 - 50mcg/Act nostril every day M.D. 06/03/2019 Suspension Ciprodex 3-4 gtts bid in 15ml H69.93 Reggie Su, 06/03/2019 - 0.3-0.1% affected ear x 1 M.D. 06/05/2019 Suspension wk rebate: rxbin: [id number], rxpcn: loyalty, rxgrp: [id number], grips: ([id number]), id# [id number] Cetirizine HCL 1 by mouth every 30tabs Reggie Su, 12/18/2018 - 10mg day . take at M.D. 04/15/2019 Tablets night if makes you drowsy. Fluticasone 2 sprays each 29.7ml Reggie Su, 12/18/2018 - Propionate nostril every day M.D. 04/15/2019 50mcg/Act Suspension Immunizations Description No Information Available Vital Signs Date Vital Result Comment 06/17/2019 2:30pm Weight 173.00 lb Height 65 inches 5'5" BMI (Body Mass Index) 28.8 kg/m2 BP Systolic 114 mmHg BP Diastolic 78 mmHg Heart Rate 95 /min O2 % BldC Oximetry 99 % Body Temperature 98.2 F Pain Level 0 06/03/2019 9:59am Weight 174.00 lb Height 65 inches 5'5" BMI (Body Mass Index) 29.0 kg/m2 BP Systolic 114 mmHg BP Diastolic 75 mmHg Heart Rate 94 /min O2 % BldC Oximetry 98 % Body Temperature 97.4 F Pain Level 0 Results Description No Information Available Procedures Date Code Description Status 06/03/2019 09339 Tympanometry Completed 06/03/2019 70156 Audiometry, Comprehensive Completed 04/22/2019 52753 Tympanostomy, Gen. Anesth. Completed 04/22/2019 94212 Anesthesia, Tympanotomy Completed 02/17/2019 98473 Cat Scan Maxillofacial W/O Contrast,computed tomography Completed 02/17/2019 13545 Cat Scan Maxillofacial W/O Contrast,computed tomography Completed 02/17/2019 20817 Cat Scan Maxillofacial W/O Contrast,computed tomography Completed 02/11/2019 82236 Tympanometry Completed 02/11/2019 56972 Audiometry, Comprehensive Completed 02/11/2019 46183 Nasal Endoscopy, Diag. Completed Medical Devices Description No Information Available Encounters Type Date Location Provider Dx Diagnosis Office Visit 06/03/2019 Main Office Tiffani Green, H69.93 Unspecified 10:00a CHIEF DRAFTER Eustachian tube disorder, bilateral H91.92 Unspecified hearing loss, left ear Office Visit 03/04/2019 4:45p Main Office Reggie Su, H69.93 Unspecified M.D. Eustachian tube disorder, bilateral Office Visit 02/11/2019 1:30p Main Office Reggie Su J32.9 Chronic sinusitis, M.D. unspecified J31.0 Chronic rhinitis H69.83 Other specified disorders of Eustachian tube, bilateral Office Visit 12/18/2018 2:15p Main Office Tiffani Goodman J34.3 Hypertrophy of nasal TERRY Green turbinates J34.2 Deviated nasal septum H69.93 Unspecified Eustachian tube disorder, bilateral Assessments Date Code Description Provider 06/03/2019 H69.93 Unspecified Eustachian tube disorder, Tiffani Green NP bilateral 06/03/2019 H91.92 Unspecified hearing loss, left ear Tiffani Green NP 04/22/2019 H66.93 Otitis media, unspecified, bilateral Jeffery Lopez MD 04/22/2019 H66.93 Otitis media, unspecified, bilateral Reggie Su M.D. 03/04/2019 H69.93 Unspecified Eustachian tube disorder, Reggie Su M.D. bilateral 02/17/2019 J32.9 Chronic sinusitis, unspecified Anthony Butler MD 02/17/2019 J32.9 Chronic sinusitis, unspecified Reggie Su M.D. 02/11/2019 J32.9 Chronic sinusitis, unspecified Reggie Su M.D. 02/11/2019 J31.0 Chronic rhinitis Reggie Su M.D. 02/11/2019 H69.83 Other specified disorders of Eustachian tube, Reggie Su M.D. bilateral 12/18/2018 J34.3 Hypertrophy of nasal turbinates Tiffani Green NP 12/18/2018 J34.2 Deviated nasal septum Tiffani Green NP 12/18/2018 H69.93 Unspecified Eustachian tube disorder, Tiffani Green NP bilateral Plan of Treatment No Information Available Functional Status Description No Information Available Mental Status Description No Information Available Referrals Refer to Reason for Referral Status Appt Date Tiffani Green NP AUTH FOR CT TB Created [address] [place] [id number] [phone] Reggie Su M.D. NO AUTH REQ FOR SURGERY Created [address] [place] [phone] [phone] Reggie Su M.D. AUTH FOR CT SINUS Created [address] [place] [address] [phone]
--- OUTSIDE RECORDS SUMMARY | 2019-06-22 19:32 | XMS REPORT | Continuity of Care Document ---
:1990 External Reference #:[id number] Author Name Tiffani Green NP (transmitted by agent of provider Greta Campa) Address [address] [place] [address] Care Team Providers Name Role Phone Augie Patton MD Care Team Information Parole Agent [phone] Problems Description No Information Available Social History Type Date Description Comments Sex Unknown Tobacco Use Start: Unknown Never Smoked Cigarettes ETOH Use Current Alcohol Use - 1-3 Days A Week. Recreational Drug Use Denies Drug Use Allergies, Adverse Reactions, Alerts Active Allergies Reaction Severity Comments Date Wellbutrin hives 04/22/2019 Inactive Allergies NKDA 12/18/2018 Medications Active Medications SIG Qnty Indications Ordering Provider Date Wellbutrin SR 1 by mouth twice Unknown 150mg Tablets a day ER 12HR History Medications Cetirizine HCL 1 by mouth every 30tabs Reggie Su, 12/18/2018 - 10mg day . take at M.D. 04/15/2019 Tablets night if makes you drowsy. Fluticasone Propionate 2 sprays each 29.7ml Reggie Su, 12/18/2018 - nostril every day M.D. 04/15/2019 50mcg/Act Suspension Immunizations Description No Information Available Vital Signs Date Vital Result Comment 06/03/2019 9:59am Weight 174.00 lb Height 65 inches 5'5" BMI (Body Mass Index) 29.0 kg/m2 BP Systolic 114 mmHg BP Diastolic 75 mmHg Heart Rate 94 /min O2 % BldC Oximetry 98 % Body Temperature 97.4 F Pain Level 0 03/04/2019 5:48pm Weight 173.00 lb Height 65 inches 5'5" BMI (Body Mass Index) 28.8 kg/m2 BP Systolic 123 mmHg BP Diastolic 84 mmHg Heart Rate 82 /min O2 % BldC Oximetry 98 % Body Temperature 97.0 F Pain Level 0 Results Description No Information Available Procedures Date Code Description Status 04/22/2019 81505 Tympanostomy, Gen. Anesth. Completed 04/22/2019 06334 Anesthesia, Tympanotomy Completed 02/17/2019 07374 Cat Scan Maxillofacial W/O Contrast,computed tomography Completed 02/17/2019 88459 Cat Scan Maxillofacial W/O Contrast,computed tomography Completed 02/17/2019 22415 Cat Scan Maxillofacial W/O Contrast,computed tomography Completed 02/11/2019 99025 Tympanometry Completed 02/11/2019 16442 Audiometry, Comprehensive Completed 02/11/2019 25383 Nasal Endoscopy, Diag. Completed Medical Devices Description No Information Available Encounters Type Date Location Provider Dx Diagnosis Office Visit 03/04/2019 Main Office Reggie Su M.D. H69.93 Unspecified 4:45p Eustachian tube disorder, bilateral Office Visit 02/11/2019 Main Office Reggie Su M.D. J32.9 Chronic sinusitis, 1:30p unspecified J31.0 Chronic rhinitis H69.83 Other specified disorders of Eustachian tube, bilateral Office Visit 12/18/2018 2:15p Main Office Tiffani A J34.3 Hypertrophy of nasal Green, MACHINE MILKER turbinates J34.2 Deviated nasal septum H69.93 Unspecified Eustachian tube disorder, bilateral Assessments Date Code Description Provider 04/22/2019 H66.93 Otitis media, unspecified, bilateral Jeffery [...] 12/18/2018 J34.3 Hypertrophy of nasal turbinates Tiffani Green, TERRY 12/18/2018 J34.2 Deviated nasal septum Tiffani Green, TERRY 12/18/2018 H69.93 Unspecified Eustachian tube disorder, Tiffani Green, TERRY bilateral Plan of Treatment No Information Available Functional Status Description No Information Available Mental Status Description No Information Available Referrals Refer to Dr Reason for Referral Status Appt Date Reggie Su M.D. NO AUTH REQ FOR SURGERY Created [address] [place] [phone] Reggie Su M.D. AUTH FOR CT SINUS Created [address] [place] [id number] [phone]
[2019-06-22 19:47] VITALS: BP 97/62
[2019-06-22] MEDS ORDERED: Amoxicillin PO (*) 500 MG CAP PO ONE (19:57)
--- NOTE | 2019-06-22 19:58 | UC ---
Throat Pain/Nasal Ciro HPI - HPI Summary HPI Summary: 28-year-old female comes in with a chief complaint of upper respiratory tract infection symptoms for 2 days. She's got some rhinorrhea that yellow. Does have some bilateral ear pain. Does have a dry cough. Minimal sore throat. Mild body aches. Took some amol-[id number] medicines which did help some symptoms. - History of Current Complaint Chief Complaint: UCGeneralIllness Stated Complaint: CONGESTION,NAUSEA,BODYACHES Time Seen by Provider: 06/22/19 19:37 Hx Last Menstrual Period: 06/10/19 Pain Intensity: 0 - Allergies/Home Medications Allergies/Adverse Reactions: Allergies Allergy/AdvReac Type Severity Reaction Status Date / Time No Known Allergies Allergy Verified 06/22/19 19:48 Home Medications: Home Medications Chlorphen/Pseudoeph/Ibuprofen [Advil Allergy Sinus Caplet] 1 tab PO Q4H [History Confirmed 06/22/19] Diphenhyd/Phenyleph/Acetaminop [Robitussin Cold-Flu Night Liq] 30 ml PO ONCE [History Confirmed 06/22/19] buPROPion HCl [Wellbutrin Sr] 1 tab PO ONCE 06/22/19 [History Confirmed 06/22/19 ] PMH/Surg Hx/FS Hx/Imm Hx Previously Healthy: Yes Other History Of: Negative For: HIV, Hepatitis B, Hepatitis C, Anticoagulant Therapy - Surgical History Surgical History: Yes Surgery Procedure, Year, and Place: tonsillectomy. ear tubes 04/22/19. mole removal 06/10/19 - Family History Known Family History: Positive: Hypertension, Diabetes Negative: Cardiac Disease - Social History Alcohol Use: Occasionally Substance Use Type: None Substance Use Comment - Amount & Last Used: 03/08 Smoking Status (MU): Never Smoked Tobacco - Immunization History Most Recent Influenza Vaccination: has not had Review of Systems All Other Systems Reviewed And Are Negative: Yes Constitutional: Positive: Other - SEE HPI Skin: Positive: Negative Eyes: Positive: Negative ENT: Positive: Sore Throat, Ear Ache, Nasal Discharge, Sinus Congestion Respiratory: Positive: Cough Cardiovascular: Positive: Negative Gastrointestinal: Positive: Negative Motor: Positive: Negative Neurovascular: Positive: Negative Musculoskeletal: Positive: Negative Neurological: Positive: Negative Psychological: Positive: Negative Is Patient Immunocompromised?: No Physical Exam Triage Information Reviewed: Yes Appearance: No Pain Distress, Well-Nourished, Ill-Appearing - MILD Vital Signs: Initial Vital Signs Temp 97.7 F 06/22/19 19:42 Pulse 86 06/22/19 19:42 Resp 17 06/22/19 19:42 BP 97/62 06/22/19 19:42 Pulse Ox 100 06/22/19 19:42 Vital Signs Reviewed: Yes Eye Exam: Normal Eyes: Positive: Conjunctiva Clear ENT: Positive: Pharyngeal erythema, Nasal congestion, Nasal drainage, TMs normal - Positive bilateral ear tubes in place. Neck: Positive: Supple Respiratory: Positive: Lungs clear, Normal breath sounds, No respiratory distress Cardiovascular: Positive: RRR Musculoskeletal: Positive: Strength Intact, ROM Intact Neurological: Positive: Alert, Muscle Tone Normal Psychological: Positive: Age Appropriate Behavior Skin Exam: Normal Throat Pain/Nasal Course/Dx - Course Course Of Treatment: DISCUSSED VIRAL VERSES BACTERIAL INFECTIONS AND THE ROLE OF ANTIBIOTIC. PATIENT PREFERS TO BE ON ANTIBIOTICS AT THIS TIME. - Differential Dx/Diagnosis Provider Diagnosis: Upper respiratory infection Discharge ED - Sign-Out/Discharge Documenting (check all that apply): Patient Departure All imaging exams completed and their final reports reviewed: No Studies - Discharge Plan Condition: Stable Disposition: HOME Prescriptions: Amoxicillin PO (*) [Amoxicillin 500 MG CAP*] 500 mg PO TID #29 cap Patient Education Materials: Upper Respiratory Infection (ED) Forms: *Work Release Referrals: Augie Patton MD [Primary Care Provider] - Additional Instructions: FOLLOW UP WITH YOUR DOCTOR IF NOT COMPLETELY IMPROVED. GET RECHECKED SOONER IF WORSE OR ANY QUESTIONS OR CONCERNS. - Billing Disposition and Condition Condition: STABLE Disposition: Home
== END 2019-06-22 20:05 | disposition home or self-care (01) ==
LOC: UCCORT 18:54
DX: J06.9 Acute upper respiratory infection, unspecified (principal)
CPT/HCPCS: 99212; A9270-GY; G0463

== ENCOUNTER 2019-08-11 15:33 | Emergency (ER) | payer OTHER ==
[2019-08-11 16:12] VITALS: BP 112/73
--- NOTE | 2019-08-11 16:18 | UC ---
Throat Pain/Nasal Ciro HPI - HPI Summary HPI Summary: 29-year-old female who has had some head congestion and postnasal drainage 4-5 days. She denies any fever or chills. She is a nonsmoker. - History of Current Complaint Chief Complaint: UCGeneralIllness Stated Complaint: CONGESTION/COUGH Time Seen by Provider: 08/11/19 16:05 Hx Obtained From: Patient Hx Last Menstrual Period: 07/30/19 ?: No Onset/Duration: Gradual Onset Severity: Mild Pain Intensity: 0 Cough: Nonproductive Associated Signs & Symptoms: Positive: Negative Related History: Smoking - Allergies/Home Medications Allergies/Adverse Reactions: Allergies Allergy/AdvReac Type Severity Reaction Status Date / Time No Known Allergies Allergy Verified 08/11/19 16:12 PMH/Surg Hx/FS Hx/Imm Hx Previously Healthy: Yes Other History Of: Negative For: HIV, Hepatitis B, Hepatitis C, Anticoagulant Therapy - Surgical History Surgical History: Yes Surgery Procedure, Year, and Place: tonsillectomy. ear tubes 04/22/19. mole removal 06/10/19 - Family History Known Family History: Positive: Hypertension, Diabetes Negative: Cardiac Disease - Social History Alcohol Use: Occasionally Substance Use Type: Marijuana Substance Use Comment - Amount & Last Used: medical Smoking Status (MU): Never Smoked Tobacco - Immunization History Most Recent Influenza Vaccination: has not had Review of Systems All Other Systems Reviewed And Are Negative: Yes ENT: Positive: Nasal Discharge - Patient states she thinks she is a has a sinus infection or just postnasal drainage., Sinus Congestion Respiratory: Positive: Cough - Nonproductive harsh cough. Is Patient Immunocompromised?: No Physical Exam Triage Information Reviewed: Yes Appearance: Well-Appearing, No Pain Distress, Well-Nourished Vital Signs: Initial Vital Signs Temp 97.7 F 08/11/19 16:07 Pulse 63 08/11/19 16:07 Resp 12 08/11/19 16:07 BP 112/73 08/11/19 16:07 Pulse Ox 100 08/11/19 16:07 Vital Signs Reviewed: Yes Eyes: Positive: Conjunctiva Clear ENT: Positive: Hearing grossly normal, Pharynx normal, Nasal drainage - Clear nasal coryza, clear postnasal drainage., TMs normal, Uvula midline. Negative: Sinus tenderness Neck: Positive: Supple, Nontender, No Lymphadenopathy Respiratory: Positive: Lungs clear, Normal breath sounds, No respiratory distress, No accessory muscle use Cardiovascular: Positive: RRR, No Murmur, Pulses Normal, Brisk Capillary Refill Musculoskeletal Exam: Normal Neurological Exam: Normal Psychological Exam: Normal Skin Exam: Normal Throat Pain/Nasal Course/Dx - Course Course Of Treatment: Patient is comfortable here. She does not appear ill. I think at this point tenderness is upper respiratory illness with postnasal drainage. She is to recheck in about 4 or 5 days if no improvement or if worsening symptoms. - Differential Dx/Diagnosis Provider Diagnosis: URI (upper respiratory infection) Discharge ED - Sign-Out/Discharge Documenting (check all that apply): Patient Departure All imaging exams completed and their final reports reviewed: No Studies - Discharge Plan Condition: Good Disposition: HOME Patient Education Materials: Upper Respiratory Infection (DC) Referrals: Augie Patton MD [Primary Care Provider] - Additional Instructions: Increase fluids, [id number] cold meds as directed, follow-up with your primary care provider in 4 or 5 days if no improvement. - Billing Disposition and Condition Condition: GOOD Disposition: Home
== END 2019-08-11 16:31 | disposition home or self-care (01) ==
LOC: UCCORT 15:33
DX: J06.9 Acute upper respiratory infection, unspecified (principal)
CPT/HCPCS: 99211; G0463

== ENCOUNTER 2019-11-01 17:44 | Emergency (ER) | payer OTHER ==
--- OUTSIDE RECORDS SUMMARY | 2019-11-01 18:19 | XMS REPORT | Continuity of Care Document ---
:1990 External Reference #:[id number] Author Name Tiffani Green NP (transmitted by agent of provider Greta Campa) Address [address] [place] [address] Care Team Providers Name Role Phone Augie Patton MD Care Team Information Cbx Operator [phone] Problems Active Problems Provider Date Eustachian tube disorder Tiffani Green NP Onset: 06/17/2019 Social History Type Date Description Comments Sex [...] 1 M.D. 06/05/2019 Suspension wk rebate: rxbin: [id number], rxpcn: loyalty, rxgrp: [id number], comb capper: [id number]), id# [id number] Immunizations Description No Information Available Vital Signs Date Vital Result Comment 10/09/2019 2:03pm Weight 180.00 lb Height 65 inches 5'5" BMI (Body Mass Index) 30.0 kg/m2 BP Systolic 115 mmHg BP Diastolic 77 mmHg Heart Rate 83 /min O2 % BldC Oximetry 99 % Body Temperature 97.1 F Pain Level 0 06/17/2019 2:30pm Weight 173.00 lb Height 65 inches 5'5" BMI (Body Mass Index) 28.8 kg/m2 BP Systolic 114 mmHg BP Diastolic 78 mmHg Heart Rate 95 /min O2 % BldC Oximetry 99 % Body Temperature 98.2 F Pain Level 0 Results Description No Information Available Procedures Date Code Description Status 06/17/2019 10459 Pure Tone Audiometry, Air Completed 06/17/2019 81685 Cat Scan Orbit/Ear W/O Contrast,computed tomography Completed 06/17/2019 49125 Cat Scan Orbit/Ear W/O Contrast,computed tomography Completed 06/17/2019 74935 Cat Scan Orbit/Ear W/O Contrast,computed tomography Completed 06/17/2019 28848 Cat Scan Orbit/Ear W/O Contrast,computed tomography Completed 06/03/2019 92637 Tympanometry Completed 06/03/2019 06998 Audiometry, Comprehensive Completed 04/22/2019 49587 Tympanostomy, Gen. Anesth. Completed 04/22/2019 59745 Anesthesia, Tympanotomy Completed Medical Devices Description No Information Available Encounters Type Date Location Provider Dx Diagnosis Office Visit 06/17/2019 Main Office Tiffani Green, H69.93 Unspecified 2:30p [employer] Eustachian tube disorder, bilateral Office Visit 06/03/2019 Main Office Tiffani Green, H69.93 Unspecified 10:00a [employer] Eustachian tube disorder, bilateral H91.92 Unspecified hearing loss, left ear Assessments Date Code Description Provider 06/17/2019 H69.93 Unspecified Eustachian tube disorder, Anthony Butler MD bilateral 06/17/2019 H69.93 Unspecified Eustachian tube disorder, Reggie Su M.D. bilateral 06/17/2019 H69.93 Unspecified Eustachian tube disorder, Tiffani Green NP bilateral 06/03/2019 H69.93 Unspecified Eustachian tube disorder, Tiffani Green NP bilateral 06/03/2019 H91.92 Unspecified hearing loss, left ear Tiffani Green NP 04/22/2019 H66.93 Otitis media, unspecified, bilateral Jeffery Lopez MD 04/22/2019 H66.93 Otitis media, unspecified, bilateral Reggie Su M.D. Plan of Treatment No Information Available Functional Status Description No Information Available Mental Status Description No Information Available Referrals Refer to Reason for Referral Status Appt Date Tiffani Green NP AUTH FOR CT TB Created [address] [place] [id number] [phone]
--- OUTSIDE RECORDS SUMMARY | 2019-11-01 18:19 | XMS REPORT | Continuity of Care Document ---
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 06/05/2019 Suspension wk rebate: rxbin: [id number], rxpcn: dalila, rxgrp: [id number], office support assistant: [id number]), id# [id number] Immunizations Description No Information Available Vital Signs [...] Information Available Procedures Date Code Description Status 10/09/2019 16220 Audiometry, Comprehensive Completed 06/17/2019 25453 Pure Tone Audiometry, Air Completed 06/17/2019 97355 Cat Scan Orbit/Ear W/O Contrast,computed tomography Completed 06/17/2019 04464 Cat Scan Orbit/Ear W/O Contrast,computed tomography Completed 06/17/2019 79878 Cat Scan Orbit/Ear W/O Contrast,computed tomography Completed 06/17/2019 63957 Cat Scan Orbit/Ear W/O Contrast,computed tomography Completed 06/03/2019 99218 Tympanometry Completed 06/03/2019 85608 Audiometry, Comprehensive Completed 04/22/2019 07190 Tympanostomy, Gen. Anesth. Completed 04/22/2019 34602 Anesthesia, Tympanotomy Completed Medical Devices Description No Information Available Encounters Type Date Location Provider Dx Diagnosis Office Visit 10/09/2019 Main Office Tiffani Green, H91.92 Unspecified hearing 2:00p [employer] loss, left ear H69.93 Unspecified Eustachian tube disorder, bilateral Office Visit 06/17/2019 2:30p Main Office Tiffani Maxine H69.93 Unspecified Green, [employer] Eustachian tube disorder, bilateral Office Visit 06/03/2019 10:00a Main Office Tiffani Goodman H69.93 Unspecified Green, [employer] Eustachian tube disorder, bilateral H91.92 Unspecified hearing loss, left ear Assessments Date Code Description Provider 10/09/2019 H91.92 Unspecified hearing loss, left ear Tiffani Green NP 10/09/2019 H69.93 Unspecified Eustachian tube disorder, Tiffani Green NP bilateral 06/17/2019 H69.93 Unspecified Eustachian tube disorder, Anthony [...] Dr Reason for Referral Status Appt Date Tiffani Green NP AUTH FOR CT TB Created [address] [place] [id number] [phone]
[2019-11-01 18:42] VITALS: BP 103/76
--- NOTE | 2019-11-01 18:57 | UC ---
Throat Pain/Nasal Ciro HPI - HPI Summary HPI Summary: 29-year-old female comes in with 3 days of upper respiratory tract infection symptoms. She's had frontal sinus pressure yellow rhinorrhea. Also postnasal drip. Mild sore throat. Has had some body aches. No history of asthma. Did try [id number] medicines which helped some with the symptoms. No complaint of shortness of breath. - History of Current Complaint Chief Complaint: UCGeneralIllness Stated Complaint: SINUS Time Seen by Provider: 11/01/19 18:33 Hx Last Menstrual Period: 10/22/19 Pain Intensity: 0 - Allergies/Home Medications Allergies/Adverse Reactions: Allergies Allergy/AdvReac Type Severity Reaction Status Date / Time No Known Allergies Allergy Verified 08/11/19 16:12 PMH/Surg Hx/FS Hx/Imm Hx Previously Healthy: Yes Other History Of: Negative For: HIV, Hepatitis B, Hepatitis C, Anticoagulant Therapy - Surgical History Surgical History: Yes Surgery Procedure, Year, and Place: tonsillectomy. ear tubes 04/22/19. mole removal 06/10/19 - Family History Known Family History: Positive: Hypertension, Diabetes Negative: Cardiac Disease - Social History Alcohol Use: Occasionally Substance Use Type: Marijuana Substance Use Comment - Amount & Last Used: medical Smoking Status (MU): Never Smoked Tobacco - Immunization History Most Recent Influenza Vaccination: has not had Review of Systems All Other Systems Reviewed And Are Negative: Yes Constitutional: Positive: Other - SEE HPI Skin: Positive: Negative Eyes: Positive: Negative ENT: Positive: Sore Throat, Nasal Discharge, Sinus Congestion, Sinus Pain/ Tenderness Respiratory: Positive: Negative Cardiovascular: Positive: Negative Gastrointestinal: Positive: Negative Motor: Positive: Negative Neurovascular: Positive: Negative Musculoskeletal: Positive: Myalgia Neurological: Positive: Headache Psychological: Positive: Negative Is Patient Immunocompromised?: No Physical Exam Triage Information Reviewed: Yes Appearance: No Pain Distress, Well-Nourished, Ill-Appearing - MILD Vital Signs: Initial Vital Signs Temp 97.4 F 11/01/19 18:37 Pulse 85 11/01/19 18:37 Resp 15 11/01/19 18:37 BP 103/76 11/01/19 18:37 Pulse Ox 97 11/01/19 18:37 Vital Signs Reviewed: Yes Eye Exam: Normal Eyes: Positive: Conjunctiva Clear ENT: Positive: Pharyngeal erythema, Nasal congestion, Nasal drainage, TMs normal - Bilateral tympanostomy tubes in place, Sinus tenderness Neck: Positive: Supple Respiratory: Positive: Lungs clear, Normal breath sounds, No respiratory distress Cardiovascular: Positive: RRR Musculoskeletal: Positive: Strength Intact, ROM Intact Neurological: Positive: Alert, Muscle Tone Normal Psychological: Positive: Age Appropriate Behavior Skin Exam: Normal Throat Pain/Nasal Course/Dx - Course Course Of Treatment: DISCUSSED VIRAL VERSES BACTERIAL INFECTIONS AND THE ROLE OF ANTIBIOTICS. THE PATIENT PREFERS TO BE ON ANTIBIOTICS AT THIS TIME. - Differential Dx/Diagnosis Provider Diagnosis: Sinusitis Discharge ED - Sign-Out/Discharge Documenting (check all that apply): Patient Departure All imaging exams completed and their final reports reviewed: No Studies - Discharge Plan Condition: Stable Disposition: HOME Prescriptions: Amoxicillin PO (*) [Amoxicillin 875 MG (*)] 875 mg PO BID #20 tab Patient Education Materials: Sinusitis (ED) Forms: *Work Release Referrals: Augie Patton MD [Primary Care Provider] - Additional Instructions: FOLLOW UP WITH YOUR DOCTOR IF NOT COMPLETELY IMPROVED. GET REEVALUATED SOONER IF NOT IMPROVING OR WORSE OR ANY QUESTIONS OR CONCERNS. - Billing Disposition and Condition Condition: STABLE Disposition: Home
[2019-11-01 19:00] LABS: Influenza A Molecular Negative (Negative); Influenza B Molecular Negative (Negative)
[2019-11-01] MEDS ORDERED: Amoxicillin PO (*) 500 MG CAP PO ONE (19:03)
== END 2019-11-01 19:15 | disposition home or self-care (01) ==
LOC: UCCORT 17:44
DX: J32.9 Chronic sinusitis, unspecified (principal); M79.10 Myalgia, unspecified site
CPT/HCPCS: 87651; 99212; A9270-GY; G0463

== ENCOUNTER 2019-11-26 07:05 | Emergency (ER) | payer OTHER ==
[2019-11-26 07:20] VITALS: BP 113/58
--- NOTE | 2019-11-26 07:34 | UC ---
Hand/Wrist HPI - HPI Summary HPI Summary: 29-year-old woman comes in with a chief complaint of left thumb pain. While at work on 17 November 2019 patient injured her right thumb. No weakness or numbness. Pain is worse with range of motion. Pain is less with not using the thumb. The focal area the pain is in the PIP joint of the left thumb. Pain is worst with extension of the thumb. - History Of Current Complaint Chief Complaint: UCUpperExtremity Stated Complaint: LEFT THUMB INJURY Time Seen by Provider: 11/26/19 07:31 Hx Last Menstrual Period: 11/09/19 Pain Intensity: 5 - Allergies/Home Medications Allergies/Adverse Reactions: Allergies Allergy/AdvReac Type Severity Reaction Status Date / Time No Known Allergies Allergy Verified 11/26/19 07:21 Home Medications: Home Medications Escitalopram * [Lexapro 20 mg (NF)] 20 mg PO DAILY 08/21/18 [History Confirmed 11/26/19] buPROPion HCl [Wellbutrin Sr] 1 tab PO ONCE 06/22/19 [History Confirmed 11/26/19 ] PMH/Surg Hx/FS Hx/Imm Hx Previously Healthy: Yes Other History Of: Negative For: HIV, Hepatitis B, Hepatitis C, Anticoagulant Therapy - Surgical History Surgical History: Yes Surgery Procedure, Year, and Place: tonsillectomy. ear tubes 04/22/19. mole removal 06/10/19 - Family History Known Family History: Positive: Hypertension, Diabetes Negative: Cardiac Disease - Social History Alcohol Use: Occasionally Substance Use Type: Marijuana Substance Use Comment - Amount & Last Used: medical-last 07/2019 Smoking Status (MU): Never Smoked Tobacco - Immunization History Most Recent Influenza Vaccination: has not had Review of Systems All Other Systems Reviewed And Are Negative: Yes Constitutional: Positive: Negative Skin: Positive: Negative Eyes: Positive: Negative ENT: Positive: Negative Respiratory: Positive: Negative Cardiovascular: Positive: Negative Gastrointestinal: Positive: Negative Motor: Positive: Negative Neurovascular: Positive: Negative Musculoskeletal: Positive: Other: - see hpi Neurological/Mental Status: Positive: Negative Psychological: Positive: Negative Is Patient Immunocompromised?: No Physical Exam Triage Information Reviewed: Yes Appearance: Well-Appearing, No Pain Distress, Well-Nourished Vital Signs: Initial Vital Signs Temp 97.4 F 11/26/19 07:14 Pulse 75 02/26/20 07:14 Resp 20 11/26/19 07:14 BP 113/58 11/26/19 07:14 Pulse Ox 100 11/26/19 07:14 Vital Signs Reviewed: Yes Eye Exam: Normal Eyes: Positive: Conjunctiva Clear Neck: Positive: Supple Respiratory: Positive: No respiratory distress Musculoskeletal: Positive: Other: - Left thumb has full range of motion full- strength normal capillary refill normal sensation. Mild tenderness to palpation in the PIP. Denies any pain with abduction and adduction and flexion. Reports increased pain with extension in the PIP. Neurological: Positive: Alert Psychological: Positive: Age Appropriate Behavior Skin Exam: Normal Hand/Wrist Course/Dx - Course Course Of Treatment: Section Leader Screen Printing: Spencer Estrada, ([id number]) Fisher Weir: PATIENCE ([place]) Report Date: 11/26/2019 07:54:00 Report Status: Final Start of Report Content Patient Name: DARCIE DIAZ Medical Record#: [id number] Ordering Physician: Leo Chan MD Acct.#: [id number] : 01/1990 Age: 29 Sex: F Location: [facility] Exam Date: 11/26/19725 ADM Status: REG ER Order Information: THUMB LEFT Accession Number: [id number] CPT: 39938 Clinical history: Pain. COMPARISON: None. TECHNIQUE: 3 radiographic views of the left thumb were obtained. FINDINGS: The soft tissues are unremarkable. The bone mineralization is within normal limits. No fracture is identified. Anatomic alignment is maintained. The joint spaces are preserved. IMPRESSION: No fracture identified <Electronically signed by Spencer Estrada MD in OV> [id number] Dictated By: Spencer Estrada MD Dictated Date/Time: 11/26/19749 Transcribed Date/Time: 11/26/19749 Copy to: CC:Augie Patton MD; Leo Chan MD Imaging - [facility] Imaging - [facility] Imaging - [facility] [address] [address] ph [phone] ph ) ph [phone]) End of Report Content I discussed the x-rays with the patient. No fracture seen. Plan is ice anti- inflammatories. Thumb spica splint was placed by nursing and clinic patient know that intact after placement of thumb spica splint. Follow-up with orthopedics if not completely improved. - Differential Dx/Diagnosis Provider Diagnosis: Sprain of left thumb Discharge ED - Sign-Out/Discharge Documenting (check all that apply): Patient Departure All imaging exams completed and their final reports reviewed: Yes - Discharge Plan Condition: Stable Disposition: HOME Referrals: Abdi ASH,Augie [Primary Care Provider] - - Billing Disposition and Condition Condition: STABLE Disposition: Home
== END 2019-11-26 08:22 | disposition home or self-care (01) ==
LOC: UCCORT 07:05
DX: S63.602A Unspecified sprain of left thumb, initial encounter (principal); X58.XXXA Exposure to other specified factors, initial encounter; Y92.9 Unspecified place or not applicable; Y99.0 Civilian activity done for income or pay
CPT/HCPCS: 99212; G0463